=== PATIENT | male | born 1975 | race Caucasian/White ===

== ENCOUNTER 2021-01-10 02:13 | Inpatient (IN) | payer BC, SELFPAY ==
[2021-01-10] VITALS (7 sets, daily range): BP systolic 109–175; BP diastolic 74–115; PULSE 84–95; RESP 16–18; TEMP 36.4–37; O2SAT 96–98; BMI 23.7
[2021-01-10 03:05] LABS: MANUAL DIFF FLAG NO
[2021-01-10 03:07] LABS: Basophils Percent Auto 0.5 % (0-2); Eosinophils Absolute Auto 0.1 X10*3/uL (0.0-0.4); Eosinophils Percent Auto 1.9 % (0-4); Hematocrit 41.7 % (42-52); Hemoglobin 14.8 g/dl (14.0-18.0); Imm Gran Abs Auto 0.02 X10*3/uL (0.00-0.03); Imm Gran Pct Auto 0.3 % (0.0-0.4); Lymphocytes Absolute Auto 2.3 X10*3/uL (1.2-4.9); Lymphocytes Percent Auto 39.9 % (20-40); Mean Corpuscular HGB Conc 35.5 g/dl (31.0-36.0); Mean Corpuscular Hemoglobin 33.3 pg (27.0-33.0); Mean Corpuscular Volume 93.7 fL (80-98); Mean Platelet Volume 9.8 fL (9.4-12.4); Monocytes Absolute Auto 0.5 X10*3/uL (0.1-1.2); Monocytes Percent Auto 8.4 % (2-11); Neutrophils Absolute Auto 2.8 X10*3/uL (2.0-8.3); Platelet Count 150 X10*3/uL (160-400); Red Blood Count 4.45 X10*6/uL (4.60-5.80); Red Cell Distribution Width 12.5 % (11.0-16.0); White Blood Count 5.7 X10*3/uL (4.8-10.8)
[2021-01-10 03:08] LABS: Glucose Urine UA NEG (NEG); Leukocyte Esterase Urine NEG (NEG); Nitrite Urine NEG (NEG); Urine Blood NEG (NEG); Urine Ketones NEG (NEG); Urine Protein NEG (NEG-TRACE)
[2021-01-10 03:09] LABS: Appearance Urine CLEAR; Color Urine YELLOW
[2021-01-10 03:13] LABS: Bacteria Urine 1+ /LPF; Mucus Urine 1+ /LPF; Squamous Epithelial Cell Urine 1+ /LPF
[2021-01-10 03:19] LABS: COVID-19 Test Negative (Negative); IDNOW Serial# 9DD0AD1C
[2021-01-10] MEDS: LORazepam 1 MG TABLET PO (03:26)
--- NOTE | 2021-01-10 03:28 | PC.NURSE ---
Patient reported his anxiety bad and gave score 6/10 at this time, provider notified/ordered Ativan 1 mg/administered as ordered/pending effect. Patient reported he is taking Ativan for first time, medication education completed, no other distress reported at this time, will continue to monitor.
[2021-01-10 03:30] LABS: Anion Gap 16 (12-20); Blood Urea Nitrogen 18 mg/dL (9-16); Calcium 9.2 mg/dL (8.4-10.2); Carbon Dioxide 21 mmol/L (22-29); Chloride 108 mmol/L (96-108); Estimated Glomerular Filt Rate > 60; Ethanol 138 mg/dL; Glucose Random 113 mg/dL (60-115); Sodium 141 mmol/L (135-145)
[2021-01-10 03:41] LABS: Amphetamine Screen Urine Not Detected (Not Detect); Barbiturates, Urine Not Detected (Not Detect); Benzodiazepines Screen Urine Not Detected (Not Detect); Cannabinoid Screen Urine POSITIVE (Not Detect); Cocaine Screen Urine Not Detected (Not Detect); Fentanyl, urine Not Detected (Not Detect); Opiate Screen Urine Not Detected (Not Detect); Phencyclidine Screen Urine Not Detected (Not Detect)
--- NOTE | 2021-01-10 03:47 | ED.PSYCH ---
HPI - Psych General Chief Complaint: Psychiatric Symptoms Stated Complaint: SI Time Seen by Provider: 01/10/21 03:24 Source: patient, family () and EMS Mode of arrival: EMS History of Present Illness HPI Narrative: 45-year-old male who is brought in by EMS after called police department for help, reporting that patient was making suicidal statements and endorsed a plan. Patient's plan was to drive off the road at high speed and was apparently triggered by chronic depression and anxiety that patient has been dealing with for a long time which has been exacerbated by the pandemic. Patient was promptly Section and brought in by EMS. Patient noted to have psychiatry appointment on 01/20 and otherwise denies homicidal ideation or audiovisual hallucinations. Related Data Home Medications Medication Instructions Recorded Confirmed buspirone 15 mg tablet 2 tab PO BID PRN 01/10/21 01/10/21 mirtazapine 15 mg tablet 1 tab PO BEDTIME 01/10/21 01/10/21 Allergies Allergy/AdvReac Type Severity Reaction Status Date / Time No Known Allergies Allergy Verified 01/10/21 02:39 Review of Systems Review of Systems: Pertinent positives and negatives as stated in HPI 10 point review systems is otherwise negative. [facility] Past Medical History Source: nursing notes reviewed Social History Social History Advance Directives: No Advance Directives Information Provided: No Physical Exam Vital Signs: Vital Signs: Last Vital Signs Temp 98 F 01/10/21 06:46 Pulse 95 01/10/21 06:46 Resp 16 01/10/21 06:46 BP 109/74 01/10/21 06:46 Pulse Ox 98 01/10/21 06:46 Body Mass Index 23.7 VITAL SIGNS: Reviewed. GENERAL: Well developed, well nourished, in no acute distress. HEAD: Normocephalic/atraumatic EYES: PERRLA, EOMI LUNGS: Normal breath sounds. No adventitious sounds or accessory muscle use. SpO2<98> CARDIOVASCULAR: Regular rate and rhythm without noted murmurs ABDOMEN: Soft, non-tender, non-distended with bowel sounds. SKIN: Inspection of the skin reveals no rashes NEUROLOGIC: Alert and oriented x 4. Strength and sensation to light touch were grossly intact x4 PSYCH: Depressed affect Course Course Course Narrative: 45-year-old male with history and clinical presentation consistent with acute suicidal ideation with depression. Review of all investigations shows presence of alcohol and marijuana, but otherwise no acute findings and patient is otherwise medically cleared for further evaluation by the care team. Reevaluation(s) Reevaluation #1: Patient placed in physician observation because the patient needed more time for evaluation by care team in the morning. At the time observation was started the patient's vital signs were stable, patient is alert, neuro: Nonfocal, CV RRR, lungs clear Time: 05:26 MDM - Psych Lab Data Result diagrams: 01/10/21 03:01 01/10/21 03:01 Labs: Lab Results 01/10/21 01/10/21 01/10/21 Range/Units 02:51 02:51 02:51 WBC (4.8-10.8) X10*3/uL RBC (4.60-5.80) X10*6/uL Hgb (14.0-18.0) g/dl Hct (42-52) % MCV (80-98) fL MCH (27.0-33.0) pg MCHC (31.0-36.0) g/dl RDW (11.0-16.0) % Plt Count (160-400) X10*3/uL MPV (9.4-12.4) fL Immature Gran % (Auto) (0.0-0.4) % Neut % (Auto) (45-73) % Lymph % (Auto) (20-40) % Gulf % (Auto) (2-11) % Eos % (Auto) (0-4) % Baso % (Auto) (0-2) % Lymph # (Auto) (1.2-4.9) X10*3/uL [place] # (Auto) (0.1-1.2) X10*3/uL Eos # (Auto) (0.0-0.4) X10*3/uL Baso # (Auto) (0.0-0.2) X10*3/uL Abs Immat Gran (auto) (0.00-0.03) X10*3/uL Absolute Neuts (auto) (2.0-8.3) X10*3/uL Absolute Nucleated RBC (0.0-0.012) X10*3/uL Nucleated RBC % (auto) (0.0-0.2) /100WBC Sodium (135-145) mmol/L Potassium (3.3-5.1) mmol/L Chloride (96-108) mmol/L Carbon Dioxide (22-29) mmol/L Anion Gap (12-20) BUN (9-16) mg/dL Creatinine (0.5-1.4) mg/dL Estim Creat Clear Calc Estimated GFR Random Glucose (60-115) mg/dL Calcium (8.4-10.2) mg/dL Urine Color YELLOW Urine Appearance CLEAR Urine pH 6.0 (5.0-8.0) Ur Specific [place] 1.020 (1.005-1.025) Urine Protein NEG (NEG-TRACE) MG/DL Urine Glucose (UA) NEG (NEG) MG/DL Urine Ketones NEG (NEG) MG/DL Urine Blood NEG (NEG) Urine Nitrite NEG (NEG) Ur Leukocyte Esterase NEG (NEG) Urine RBC 1-4 (0) /HPF Urine WBC 1-4 (0-4) /HPF Ur Squamous Epith Cells 1+ /LPF Urine Bacteria 1+ /LPF Hyaline Casts 1-4 /LPF Urine Mucus 1+ /LPF Urine Opiates Screen Not Detected (Not Detect) Urine Fentanyl Screen Not Detected (Not Detect) Ur Barbiturates Screen Not Detected (Not Detect) Ur Phencyclidine Scrn Not Detected (Not Detect) Ur Amphetamines Screen Not Detected (Not Detect) U Benzodiazepines Scrn Not Detected (Not Detect) Urine Cocaine Screen Not Detected (Not Detect) U Marijuana (THC) Screen POSITIVE H (Not Detect) Ethyl Alcohol mg/dL COVID-19 (KUN) Negative (Negative) COVID-19 Clin Com See Note 01/10/21 01/10/21 01/10/21 Range/Units 03:01 03:01 03:01 WBC 5.7 (4.8-10.8) X10*3/uL RBC 4.45 L (4.60-5.80) X10*6/uL Hgb 14.8 (14.0-18.0) g/dl Hct 41.7 L (42-52) % MCV 93.7 (80-98) fL MCH 33.3 H (27.0-33.0) pg MCHC 35.5 (31.0-36.0) g/dl RDW 12.5 (11.0-16.0) % Plt Count 150 L (160-400) X10*3/uL MPV 9.8 (9.4-12.4) fL Immature Gran % (Auto) 0.3 (0.0-0.4) % Neut % (Auto) 49.0 (45-73) % Lymph % (Auto) 39.9 (20-40) % Gulf % (Auto) 8.4 (2-11) % Eos % (Auto) 1.9 (0-4) % Baso % (Auto) 0.5 (0-2) % Lymph # (Auto) 2.3 (1.2-4.9) X10*3/uL [place] # (Auto) 0.5 (0.1-1.2) X10*3/uL Eos # (Auto) 0.1 (0.0-0.4) X10*3/uL Baso # (Auto) 0.0 (0.0-0.2) X10*3/uL Abs Immat Gran (auto) 0.02 (0.00-0.03) X10*3/uL Absolute Neuts (auto) 2.8 (2.0-8.3) X10*3/uL Absolute Nucleated RBC 0.000 (0.0-0.012) X10*3/uL Nucleated RBC % (auto) 0.0 (0.0-0.2) /100WBC Sodium 141 (135-145) mmol/L Potassium 4.0 (3.3-5.1) mmol/L Chloride 108 (96-108) mmol/L Carbon Dioxide 21 L (22-29) mmol/L Anion Gap 16 (12-20) BUN 18 H (9-16) mg/dL Creatinine 1.17 (0.5-1.4) mg/dL Estim Creat Clear Calc 84.0 Estimated GFR > 60 Random Glucose 113 (60-115) mg/dL Calcium 9.2 (8.4-10.2) mg/dL Urine Color Urine Appearance Urine pH (5.0-8.0) Ur Specific [place] (1.005-1.025) Urine Protein (NEG-TRACE) MG/DL Urine Glucose (UA) (NEG) MG/DL Urine Ketones (NEG) MG/DL Urine Blood (NEG) Urine Nitrite (NEG) Ur Leukocyte Esterase (NEG) Urine RBC (0) /HPF Urine WBC (0-4) /HPF Ur Squamous Epith Cells /LPF Urine Bacteria /LPF Hyaline Casts /LPF Urine Mucus /LPF Urine Opiates Screen (Not Detect) Urine Fentanyl Screen (Not Detect) Ur Barbiturates Screen (Not Detect) Ur Phencyclidine Scrn (Not Detect) Ur Amphetamines Screen (Not Detect) U Benzodiazepines Scrn (Not Detect) Urine Cocaine Screen (Not Detect) U Marijuana (THC) Screen (Not Detect) Ethyl Alcohol 138 mg/dL COVID-19 (KUN) (Negative) COVID-19 Clin Com Discharge Plan Discharge Clinical Impression: Depression, Suicidal ideation Prescriptions: No Action mirtazapine 15 mg tablet 1 tab PO BEDTIME RF: 0 buspirone 15 mg tablet 2 tab PO BID PRN (Reason: Anxiety) RF: 0
--- NOTE | 2021-01-10 06:18 | PC.NURSE ---
Patient slept through since arrived, positive effect from Ativan 1 mg, no distress observed/reported at this time, care team consult ordered, patient will be seen in the morning, behavior appropriate, VSS, will continue to monitor.
--- NOTE | 2021-01-10 08:43 | PC.NURSE ---
pt a/o x 3 o sob/nii noted skin pink warm speaks in full sentences. pt denies any si/hi at this time. pt states, i feel ashamed about the trouble that i have put people through, life is hard .
--- NOTE | 2021-01-10 09:45 | PC.NURSE ---
pt's minda called [facility] [place] and spoke with this rn. pt's stated that pt is very unpredictable, drinks (etoh), get really angry which can be scary for her and the kids and if he is going to come home he needs to have a plan of care . md aware..
[2021-01-10] MEDS: lisinopriL 10 MG TABLET 30 MG PO (11:53)
--- NOTE | 2021-01-10 12:17 | PHA.MEDREC ---
Pharmacy Consult ? Medication Reconciliation Pharmacy has completed the medication reconciliation. Patient is inherent to medications Patient reports taking lisinopril 30mg daily however it has not been filled since 05/03/2020 for a 90 days supply. I contacted [facility] who was able to verify that he was suppose to be on it. They also verified that they sent a prescription for a 90 days supply with 2 refills. Daphne, patient's , is going to call to verify if patient is actually taking at home. Pao Zamora, ZaidaD
--- NOTE | 2021-01-10 19:56 | PCS.ADM ---
Pt C[place] [facility] after expressing to his that he wanted to drive his car into the [employer]. Pt has been depressed for 46 years. Pt has not been able to see a psychiatrist and thinks that this has compounded his depression. Pt signed a CV. Pt lives with his and her 15 year old daughter that does not want a relationship with him. Pt and have a 2 year old son together. Pt feels he needs different meds. Pt does admit that he drinks alcohol and smokes marijuana often. Pt denies withdrawal symptoms. Pt is tearful on and off. Pt does seem sad. Pt has a stressful job with the [employer]. Pt states he has never done anything to end his life and does not want to. He just wants help.
[2021-01-10] MEDS: Mirtazapine 15 MG TABLET PO (20:10)
[2021-01-10] MEDS: hydrOXYzine HCL 25 MG TABLET PO (20:10)
[2021-01-10] MEDS: traZODone HCL 50 MG TABLET PO (20:10)
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
[2021-01-11 06:00] VITALS: BP 148/82; PULSE 97; RESP 16; TEMP 36.3; O2SAT 98
[2021-01-11] MEDS: LORazepam 1 MG TABLET 0.5 MG PO ×3 (06:29→20:38)
[2021-01-11 07:37] LABS: Alanine Aminotransferase 30 U/L (0-40); Albumin Level 4.5 g/dL (3.5-5.0); Alkaline Phosphatase 60 U/L (39-117); Aspartate Amino Transferase 36 U/L (5-37); Bilirubin Direct 0.3 mg/dL (0.0-0.5); Bilirubin Total 1.1 mg/dL (0.0-1.0); Magnesium 2.2 mg/dL (1.6-2.6); Total Protein 7.4 g/dL (6.5-8.0)
[2021-01-11 08:26] LABS: Folate 15.9 ng/mL (> or = 4.0); Vitamin B12 333 pg/mL (200-900)
[2021-01-11 09:36] VITALS: BP 148/82; PULSE 97
[2021-01-11] MEDS: Pyridoxine HCl (Vitamin B6) 50 MG TABLET PO (09:36)
[2021-01-11] MEDS: OXcarbazepine 150 MG TABLET PO ×2 (09:36→20:38)
[2021-01-11] MEDS: Thiamine HCL 100 MG TABLET PO (09:36)
[2021-01-11] MEDS: busPIRone HCl 10 MG TABLET 30 MG PO ×2 (09:36→20:39)
[2021-01-11] MEDS: lisinopriL 10 MG TABLET 30 MG PO (09:36)
[2021-01-11] MEDS: Folic Acid 1 MG TABLET PO (09:36)
[2021-01-11 18:00] VITALS: BP 118/75; PULSE 92; TEMP 36.8
[2021-01-11] MEDS: Mirtazapine 15 MG TABLET PO (20:38)
[2021-01-11] MEDS: hydrOXYzine HCL 25 MG TABLET PO (20:38)
--- NOTE | 2021-01-11 23:54 | P.PNPSI_ITS ---
Subjective Subjective Date of Service: 01/11/21 Reason For Visit: SI Depression Interim History: pt seen on 01/11 Reports he is feeling better getting some time to reflect pt shared that he was never suicidal but just said his comment in an angry, frustrated moment during an argument with his ; patient denies any history of attempted suicide; continues to deny SI - he endorses PTSD from childhood trauma as well as other traumas; has subsequent high anxiety; reports both parents were emotionally absent, no displays of warmth or affection; father chronic alcoholic -Patient reports depression of the last couple of years, marked with low self- esteem and bouts of hopelessness - number of psychosocial stressors including considerable family strife as patient has a 15-year-old stepdaughter; the relationship is challenging which further has frustrated his relationship with his ; 3 years has a toddler; 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 Patient agrees to continue with current medications at this time Mental Status Exam Mental Status Exam Narrative: Patient Appearance:?Appropriate Patient Orientation:?Person, Place, Time and Situation Level of Consciousness:?Awake and Alert Patient Behavior:?Appropriate and Cooperative Mood Description:?depressed, anxious Affect Description:?a little blunted Patient Cognition Impaired:?No Ability to Follow Directions:?Good Speech Pattern:?Spontaneous Speech Hallucinations:?None Delusions:?Not Present Thought Process:?Goal Oriented Thought Content: On treatment; no SI and no HI Judgement:?Fair Diagnostics Vital Signs (24Hr): Vital Signs - 24 hr 01/11/21 06:00 01/11/21 09:36 01/11/21 18:00 Temperature 97.3 F 98.2 F Pulse Rate 97 97 92 Respiratory Rate 16 Blood Pressure 148/82 H 148/82 H 118/75 Pulse Oximetry 98 Body Mass Index 23.7 Labs Results: 01/10/21 03:01 01/10/21 03:01 Labs: Laboratory Results - last 48 hr 01/10/21 01/10/21 01/10/21 02:51 02:51 02:51 WBC RBC Hgb Hct MCV MCH MCHC RDW Plt Count MPV Immature Gran % (Auto) Neut % (Auto) Lymph % (Auto) [place] % (Auto) Eos % (Auto) Baso % (Auto) Lymph # (Auto) [place] # (Auto) Eos # (Auto) Baso # (Auto) Abs Immat Gran (auto) Absolute Neuts (auto) Absolute Nucleated RBC Nucleated RBC % (auto) Sodium Potassium Chloride Carbon Dioxide Anion Gap BUN Creatinine Estim Creat Clear Calc Estimated GFR Random Glucose Calcium Magnesium Total Bilirubin Direct Bilirubin AST ALT Alkaline Phosphatase Total Protein Albumin Vitamin B12 Folate Urine Color YELLOW Urine Appearance CLEAR Urine pH 6.0 Ur Specific [place] 1.020 Urine Protein NEG Urine Glucose (UA) NEG Urine Ketones NEG Urine Blood NEG Urine Nitrite NEG Ur Leukocyte Esterase NEG Urine RBC 1-4 Urine WBC 1-4 Ur Squamous Epith Cells 1+ Urine Bacteria 1+ Hyaline Casts 1-4 Urine Mucus 1+ Urine Opiates Screen Not Detected Urine Fentanyl Screen Not Detected Ur Barbiturates Screen Not Detected Ur Phencyclidine Scrn Not Detected Ur Amphetamines Screen Not Detected U Benzodiazepines Scrn Not Detected Urine Cocaine Screen Not Detected U Marijuana (THC) Screen POSITIVE H Ethyl Alcohol COVID-19 (KUN) Negative COVID-19 Clin Com See Note 01/10/21 01/10/21 01/10/21 03:01 03:01 03:01 WBC 5.7 RBC 4.45 L Hgb 14.8 Hct 41.7 L MCV 93.7 MCH 33.3 H MCHC 35.5 RDW 12.5 Plt Count 150 L MPV 9.8 Immature Gran % (Auto) 0.3 Neut % (Auto) 49.0 Lymph % (Auto) 39.9 Norton % (Auto) 8.4 Eos % (Auto) 1.9 Baso % (Auto) 0.5 Lymph # (Auto) 2.3 Norton # (Auto) 0.5 Eos # (Auto) 0.1 Baso # (Auto) 0.0 Abs Immat Gran (auto) 0.02 Absolute Neuts (auto) 2.8 Absolute Nucleated RBC 0.000 Nucleated RBC % (auto) 0.0 Sodium 141 Potassium 4.0 Chloride 108 Carbon Dioxide 21 L Anion Gap 16 BUN 18 H Creatinine 1.17 Estim Creat Clear Calc 84.0 Estimated GFR > 60 Random Glucose 113 Calcium 9.2 Magnesium Total Bilirubin Direct Bilirubin AST ALT Alkaline Phosphatase Total Protein Albumin Vitamin B12 Folate Urine Color Urine Appearance Urine pH Ur Specific [place] Urine Protein Urine Glucose (UA) Urine Ketones Urine Blood Urine Nitrite Ur Leukocyte Esterase Urine RBC Urine WBC Ur Squamous Epith Cells Urine Bacteria Hyaline Casts Urine Mucus Urine Opiates Screen Urine Fentanyl Screen Ur Barbiturates Screen Ur Phencyclidine Scrn Ur Amphetamines Screen U Benzodiazepines Scrn Urine Cocaine Screen U Marijuana (THC) Screen Ethyl Alcohol 138 COVID-19 (KUN) COVID-19 Clin Com 01/11/21 01/11/21 06:56 06:56 WBC RBC Hgb Hct MCV MCH MCHC RDW Plt Count MPV Immature Gran % (Auto) Neut % (Auto) Lymph % (Auto) [place] % (Auto) Eos % (Auto) Baso % (Auto) Lymph # (Auto) [place] # (Auto) Eos # (Auto) Baso # (Auto) Abs Immat Gran (auto) Absolute Neuts (auto) Absolute Nucleated RBC Nucleated RBC % (auto) Sodium Potassium Chloride Carbon Dioxide Anion Gap BUN Creatinine Estim Creat Clear Calc Estimated GFR Random Glucose Calcium Magnesium 2.2 Total Bilirubin 1.1 H Direct Bilirubin 0.3 AST 36 ALT 30 Alkaline Phosphatase 60 Total Protein 7.4 Albumin 4.5 Vitamin B12 333 Folate 15.9 Urine Color Urine Appearance Urine pH Ur Specific [place] Urine Protein Urine Glucose (UA) Urine Ketones Urine Blood Urine Nitrite Ur Leukocyte Esterase Urine RBC Urine WBC Ur Squamous Epith Cells Urine Bacteria Hyaline Casts Urine Mucus Urine Opiates Screen Urine Fentanyl Screen Ur Barbiturates Screen Ur Phencyclidine Scrn Ur Amphetamines Screen U Benzodiazepines Scrn Urine Cocaine Screen U Marijuana (THC) Screen Ethyl Alcohol COVID-19 (KUN) COVID-19 Clin Com Medications Medications Current Medications Generic Name Dose Route Start Last Admin Trade Name Freq PRN Reason Stop Dose Admin Acetaminophen 650 mg 01/10/21 17:26 Acetaminophen 325 Mg Tablet PO Q6H PRN Headache/Pain Mild Scale (1-3) Al Hydroxide/Mg Hydroxide 30 ml 01/10/21 17:26 Magnesium Hydrox/Alum Hydrox 30 Ml Oral.Susp PO Q6H PRN Heartburn/Nausea Buspirone HCl 30 mg 01/11/21 09:00 01/11/21 20:39 Buspirone Hcl 10 Mg Tablet PO 30 mg BID MICHEAL Administration Folic Acid 1 mg 01/11/21 09:00 01/11/21 09:36 Folic Acid 1 Mg Tablet PO 1 mg DAILY MICHEAL Administration Hydroxyzine HCl 25 mg 01/10/21 17:26 01/11/21 20:38 Hydroxyzine Hcl 25 Mg Tablet PO 25 mg Q6H PRN Administration Anxiety Lisinopril 30 mg 01/11/21 09:00 01/11/21 09:36 Lisinopril 10 Mg Tablet PO 30 mg DAILY MICHEAL Administration Protocol Lorazepam 1 mg 01/10/21 21:01 01/11/21 20:38 Lorazepam 1 Mg Tablet PO 01/14/21 21:00 1 mg Q6H PRN Administration Alcohol Withdrawal Taper Magnesium Hydroxide 30 ml 01/10/21 17:26 Milk Of Magnesia 30 Ml Oral.Susp PO DAILY PRN Constipation Mirtazapine 15 mg 01/10/21 21:00 01/11/21 20:38 Mirtazapine 15 Mg Tablet PO 15 mg BEDTIME MICHEAL Administration Oxcarbazepine 150 mg 01/11/21 09:00 01/11/21 20:38 Oxcarbazepine 150 Mg Tablet PO 150 mg BID MICHEAL Administration Pyridoxine HCl 50 mg 01/11/21 09:00 01/11/21 09:36 Pyridoxine Hcl (Vitamin B6) 50 Mg Tablet PO 50 mg DAILY MICHEAL Administration Thiamine HCl 100 mg 01/11/21 09:00 01/11/21 09:36 Thiamine Hcl 100 Mg Tablet PO 100 mg DAILY MICHEAL Administration Trazodone HCl 50 mg 01/10/21 17:26 01/10/21 20:10 Trazodone Hcl 50 Mg Tablet PO 50 mg BEDTIME PRN Administration Insomnia Allergies Allergies Allergy/AdvReac Type Severity Reaction Status Date / Time No Known Allergies Allergy Verified 01/10/21 02:39 Assessment & Plan Assessment & Plan (1) Suicidal ideation: Status: Acute Code(s): R45.851 - Suicidal ideations (2) Generalized anxiety disorder: Status: Acute Code(s): F41.1 - Generalized anxiety disorder (3) Alcohol use disorder: Status: Acute (4) MDD (major depressive disorder), recurrent episode, severe: Status: Acute Code(s): F33.2 - Major depressive disorder, recurrent severe without psychotic features Assessment and Plan: 45 y.o. Male who carries a dx of mild alcohol use disorder, SONNY, and MDD, recurrent. Arrived to [facility] ED via EMS, section 12a, after called due to pt making suicidal statement to drive off the road at a high speed to complete suicide. BAL was 138 on 03:01, pt reported drinking half a pint of vodka. He presents with sx of depression, irritability, and anxiety. Has hx of HTN. Has multiple psychosocial stressors at home. No hx of IPLOC, denies psychosis, no hx of manic episodes endorsed. Signed a CV. -On admission patient denied actually being suicidal and said he made a comment just out of anger and frustration in a moment of high emotion; patient denies any history of attempted suicide - he endorses PTSD from childhood trauma as well as other traumas; has subsequent high anxiety; reports both parents were emotionally absent, no displays of warmth or affection; father chronic alcoholic -Patient reports depression of the last couple of years, marked with low self- esteem and bouts of hopelessness - number of psychosocial stressors including considerable family strife as patient has a 15-year-old stepdaughter; the relationship is challenging which further has frustrated his relationship with his ; 3 years has a toddler; 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 Plan: - on admission patient's home medications continued and Trileptal started 1. Continue buspar 30 mg BID, willing to trial taking this as a scheduled dose as he reports it has been helpful (started one month ago). 2. Continue remeron 15 mg QHS for insomnia, anxiety, depression as he reports positive benefit for sleep. 3. Start trileptal 150 mg BID, may increase as tolerated (will start low dose as he has hx of med side effects) 4. Consider trial of acamprosate to target urges for alcohol. Start thiamine, folate, and pyridoxine therapy. 5. Monitor response to medications. Monitor for safety in the milieu. Discharge on stabilization. Patient seen. Chart reviewed. Discussed with team. Obtain collateral contact info?as needed Greater than 50% of the session was spent on counseling and/or coordination of care Reason for contiued inpatient stay Substantial Risk for: med/psych decompensation
[2021-01-12] MEDS: lisinopriL 10 MG TABLET 30 MG PO (08:37)
[2021-01-12] MEDS: Folic Acid 1 MG TABLET PO (08:37)
[2021-01-12] MEDS: Thiamine HCL 100 MG TABLET PO (08:37)
[2021-01-12] MEDS: OXcarbazepine 150 MG TABLET PO ×2 (08:37→20:44)
[2021-01-12] MEDS: busPIRone HCl 10 MG TABLET 30 MG PO ×2 (08:37→20:43)
[2021-01-12] MEDS: Pyridoxine HCl (Vitamin B6) 50 MG TABLET PO (08:37)
[2021-01-12] MEDS: hydrOXYzine HCL 25 MG TABLET PO ×2 (08:38→20:43)
[2021-01-12] MEDS: LORazepam 1 MG TABLET 0.5 MG PO (13:51)
[2021-01-12 18:00] VITALS: BP 148/96; PULSE 101; TEMP 36.9
--- NOTE | 2021-01-12 19:55 | HO.PSYCHPN ---
Subjective Subjective Date of Service: 01/12/21 Reason For Visit: SI Depression Subjective Notes: Conditional Voluntary and 3 Day (01/16) Healthcare Proxy: No Guardianship: No Medical Problems Affecting Mental Status: No Interim History: Pt reports he is feeling improved, CIWA 0, some mild anxiety at times assisted in mgt with hydroxyzine. Denies SI, HI. TDN 01/16/21. Medication Compliance: Yes Side effects from medications: No Attending Groups: Intermittent Review of Systems Acute medical concerns: No Medical Review of Systems: unchanged Review of Systems Psychiatric: Reports no additional psychiatric complaints and Reports suicidal ideation (denies) Mental Status Exam Mental Status Exam Patient Appearance: Appropriate Patient Orientation: Person, Place, Time and Situation Level of Consciousness: Awake and Alert Patient Behavior: Appropriate and Cooperative Mood Description: Flat Affect Description: Flat Patient Cognition Impaired: No Ability to Follow Directions: Good Speech Pattern: Spontaneous Speech Hallucinations: None Delusions: Not Present Thought Process: Goal Oriented Thought Content: positive for Goal Oriented and positive for Suicidal Ideation (denies) Judgement: Fair Diagnostics Vital Signs (24Hr): Body Mass Index 23.7 Labs Results: 01/10/21 03:01 01/10/21 03:01 Labs: Laboratory Results - last 48 hr 01/11/21 01/11/21 06:56 06:56 Magnesium 2.2 Total Bilirubin 1.1 H Direct Bilirubin 0.3 AST 36 ALT 30 Alkaline Phosphatase 60 Total Protein 7.4 Albumin 4.5 Vitamin B12 333 Folate 15.9 Medications Medications Current Medications Generic Name Dose Route Start Last Admin Trade Name Freq PRN Reason Stop Dose Admin Acetaminophen 650 mg 01/10/21 17:26 Acetaminophen 325 Mg Tablet PO Q6H PRN Headache/Pain Mild Scale (1-3) Al Hydroxide/Mg Hydroxide 30 ml 01/10/21 17:26 Magnesium Hydrox/Alum Hydrox 30 Ml Oral.Susp PO Q6H PRN Heartburn/Nausea Buspirone HCl 30 mg 01/11/21 09:00 01/12/21 08:37 Buspirone Hcl 10 Mg Tablet PO 30 mg BID MICHEAL Administration Folic Acid 1 mg 01/11/21 09:00 01/12/21 08:37 Folic Acid 1 Mg Tablet PO 1 mg DAILY MICHEAL Administration Hydroxyzine HCl 25 mg 01/10/21 17:26 01/12/21 08:38 Hydroxyzine Hcl 25 Mg Tablet PO 25 mg Q6H PRN Administration Anxiety Lisinopril 30 mg 01/11/21 09:00 01/12/21 08:37 Lisinopril 10 Mg Tablet PO 30 mg DAILY MICHEAL Administration Protocol Lorazepam 1 mg 01/10/21 21:01 01/12/21 13:51 Lorazepam 1 Mg Tablet PO 01/14/21 21:00 1 mg Q6H PRN Administration Alcohol Withdrawal Taper Magnesium Hydroxide 30 ml 01/10/21 17:26 Milk Of Magnesia 30 Ml Oral.Susp PO DAILY PRN Constipation Mirtazapine 15 mg 01/10/21 21:00 01/11/21 20:38 Mirtazapine 15 Mg Tablet PO 15 mg BEDTIME MICHEAL Administration Oxcarbazepine 150 mg 01/11/21 09:00 01/12/21 08:37 Oxcarbazepine 150 Mg Tablet PO 150 mg BID MICHEAL Administration Pyridoxine HCl 50 mg 01/11/21 09:00 01/12/21 08:37 Pyridoxine Hcl (Vitamin B6) 50 Mg Tablet PO 50 mg DAILY MICHEAL Administration Thiamine HCl 100 mg 01/11/21 09:00 01/12/21 08:37 Thiamine Hcl 100 Mg Tablet PO 100 mg DAILY MICHEAL Administration Trazodone HCl 50 mg 01/10/21 17:26 01/10/21 20:10 Trazodone Hcl 50 Mg Tablet PO 50 mg BEDTIME PRN Administration Insomnia Allergies Allergies Allergy/AdvReac Type Severity Reaction Status Date / Time No Known Allergies Allergy Verified 01/10/21 02:39 Assessment & Plan Assessment & Plan (1) Suicidal ideation: Status: Acute Code(s): R45.851 - Suicidal ideations (2) Generalized anxiety disorder: Status: Acute Code(s): F41.1 - Generalized anxiety disorder (3) Alcohol use disorder: Status: Acute (4) MDD (major depressive disorder), recurrent episode, severe: Status: Acute Code(s): F33.2 - Major depressive disorder, recurrent severe without psychotic features Assessment and Plan: 45 y.o. Male who carries a dx of mild alcohol use disorder, SONNY, and MDD, recurrent. Arrived to [facility] ED via EMS, section 12a, after called due to pt making suicidal statement to drive off the road at a high speed to complete suicide. BAL was 138 on 03:01, pt reported drinking half a pint of vodka. He presents with sx of depression, irritability, and anxiety. Has hx of HTN. Has multiple psychosocial stressors at home. No hx of IPLOC, denies psychosis, no hx of manic episodes endorsed. Signed a CV. Plan: 1. Continue buspar 30 mg BID, willing to trial taking this as a scheduled dose as he reports it has been helpful (started one month ago). 2. Continue remeron 15 mg QHS for insomnia, anxiety, depression as he reports positive benefit for sleep. 3. Continue trileptal 150 mg BID, denies SE. 4. Consider trial of acamprosate to target urges for alcohol. Start thiamine, folate, and pyridoxine therapy. 5. Monitor response to medications. Monitor for safety in the milieu. Discharge on stabilization. Patient seen. Chart reviewed. Discussed with team. Obtain collateral contact info?as needed 01/12/21: Continue the above noted plan. Pt has signed a TDN effective 01/16. Will discuss Campral again on 01/13 as he has tolerated Trileptal thus far and does not appear to have significant withdrawal symptoms. Greater than 50% of the session was spent on counseling and/or coordination of care Reason for contiued inpatient stay Substantial Risk for: harm to self, inability to function, rapid decompensation and med/psych decompensation
[2021-01-12] MEDS: traZODone HCL 50 MG TABLET PO (20:44)
[2021-01-12] MEDS: Mirtazapine 15 MG TABLET PO (20:44)
--- NOTE | 2021-01-12 23:55 | PC.NURSE ---
Bharath is currently asleep. Respiration rate is 16. No signs of agitation or sweating. Nurse did not wake patient for full CIWA assessment. Nurse will continue to monitor.
--- NOTE | 2021-01-13 04:08 | PC.NURSE ---
Bharath asleep at 0400. No signs of distress or restlessness. No signs of sweating and breathing is free and easy. Respiration was 16 .Nurse did not wake patient for full CIWA assessment. Nurse will continue to monitor patient.
[2021-01-13 09:04] VITALS: BP 137/88; PULSE 94
[2021-01-13] MEDS: Thiamine HCL 100 MG TABLET PO (09:04)
[2021-01-13] MEDS: Folic Acid 1 MG TABLET PO (09:04)
[2021-01-13] MEDS: busPIRone HCl 10 MG TABLET 30 MG PO ×2 (09:04→20:21)
[2021-01-13] MEDS: OXcarbazepine 150 MG TABLET PO ×2 (09:04→20:21)
[2021-01-13] MEDS: Pyridoxine HCl (Vitamin B6) 50 MG TABLET PO (09:04)
[2021-01-13] MEDS: lisinopriL 10 MG TABLET 30 MG PO (09:04)
[2021-01-13 18:00] VITALS: BP 148/103; PULSE 99; TEMP 36.6
--- NOTE | 2021-01-13 18:01 | P.PNPSI_ITS ---
Subjective Subjective Date of Service: 01/13/21 Reason For Visit: SI Depression Interim History: Reading in his room. No symptoms, issues of concern. Team reports he may be looking for medication titration due to an increase of symptoms in the afternoon. Medication Compliance: Yes Side effects from medications: No Review of Systems Acute medical concerns: No Medical Review of Systems: unchanged Review of Systems Psychiatric: Reports no additional psychiatric complaints and Reports suicidal ideation (denies) Mental Status Exam Mental Status Exam Patient Appearance: Appropriate Patient Orientation: Person, Place, Time and Situation Level of Consciousness: Awake and Alert Patient Behavior: Appropriate and Cooperative Mood Description: Flat Affect Description: Flat Patient Cognition Impaired: No Ability to Follow Directions: Good Speech Pattern: Spontaneous Speech Hallucinations: None Delusions: Not Present Thought Process: Goal Oriented Thought Content: positive for Goal Oriented and positive for Suicidal Ideation (denies) Judgement: Fair Diagnostics Vital Signs (24Hr): Vital Signs - 24 hr 01/13/21 09:04 Pulse Rate 94 Blood Pressure 137/88 Body Mass Index 23.7 Labs Results: 01/10/21 03:01 01/10/21 03:01 Medications Medications Current Medications Generic Name Dose Route Start Last Admin Trade Name Freq PRN Reason Stop Dose Admin Acetaminophen 650 mg 01/10/21 17:26 Acetaminophen 325 Mg Tablet PO Q6H PRN Headache/Pain Mild Scale (1-3) Al Hydroxide/Mg Hydroxide 30 ml 01/10/21 17:26 Magnesium Hydrox/Alum Hydrox 30 Ml Oral.Susp PO Q6H PRN Heartburn/Nausea Buspirone HCl 30 mg 01/11/21 09:00 01/13/21 09:04 Buspirone Hcl 10 Mg Tablet PO 30 mg BID MICHEAL Administration Folic Acid 1 mg 01/11/21 09:00 01/13/21 09:04 Folic Acid 1 Mg Tablet PO 1 mg DAILY MCIHEAL Administration Hydroxyzine HCl 25 mg 01/10/21 17:26 01/12/21 20:43 Hydroxyzine Hcl 25 Mg Tablet PO 25 mg Q6H PRN Administration Anxiety Lisinopril 30 mg 01/11/21 09:00 01/13/21 09:04 Lisinopril 10 Mg Tablet PO 30 mg DAILY MICHEAL Administration Protocol Lorazepam 0.5 mg 01/10/21 21:01 01/12/21 13:51 Lorazepam 1 Mg Tablet PO 01/14/21 21:00 1 mg Q6H PRN Administration Alcohol Withdrawal Taper Magnesium Hydroxide 30 ml 01/10/21 17:26 Milk Of Magnesia 30 Ml Oral.Susp PO DAILY PRN Constipation Mirtazapine 15 mg 01/10/21 21:00 01/12/21 20:44 Mirtazapine 15 Mg Tablet PO 15 mg BEDTIME MICHEAL Administration Oxcarbazepine 150 mg 01/11/21 09:00 01/13/21 09:04 Oxcarbazepine 150 Mg Tablet PO 150 mg BID MICHEAL Administration Pyridoxine HCl 50 mg 01/11/21 09:00 01/13/21 09:04 Pyridoxine Hcl (Vitamin B6) 50 Mg Tablet PO 50 mg DAILY MICHEAL Administration Thiamine HCl 100 mg 01/11/21 09:00 01/13/21 09:04 Thiamine Hcl 100 Mg Tablet PO 100 mg DAILY MICHEAL Administration Trazodone HCl 50 mg 01/10/21 17:26 01/12/21 20:44 Trazodone Hcl 50 Mg Tablet PO 50 mg BEDTIME PRN Administration Insomnia Allergies Allergies Allergy/AdvReac Type Severity Reaction Status Date / Time No Known Allergies Allergy Verified 01/10/21 02:39 Assessment & Plan Assessment & Plan (1) Suicidal ideation: Status: Acute Code(s): R45.851 - Suicidal ideations (2) Generalized anxiety disorder: Status: Acute Code(s): F41.1 - Generalized anxiety disorder (3) Alcohol use disorder: Status: Acute (4) MDD (major depressive disorder), recurrent episode, severe: Status: Acute Code(s): F33.2 - Major depressive disorder, recurrent severe without psychotic features Assessment and Plan: 45 y.o. Male who carries a dx of mild alcohol use disorder, SONNY, and MDD, recurrent. Arrived to [facility] ED via EMS, section 12a, after called due to pt making suicidal statement to drive off the road at a high speed to complete suicide. BAL was 138 on 03:01, pt reported drinking half a pint of vodka. He presents with sx of depression, irritability, and anxiety. Has hx of HTN. Has multiple psychosocial stressors at home. No hx of IPLOC, denies psychosis, no hx of manic episodes endorsed. Signed a CV. Plan: 1. Continue buspar 30 mg BID, willing to trial taking this as a scheduled dose as he reports it has been helpful (started one month ago). 2. Continue remeron 15 mg QHS for insomnia, anxiety, depression as he reports positive benefit for sleep. 3. Continue trileptal 150 mg BID, denies SE. 4. Consider trial of acamprosate to target urges for alcohol. Start thiamine, folate, and pyridoxine therapy. 5. Monitor response to medications. Monitor for safety in the milieu. Discharge on stabilization. Patient seen. Chart reviewed. Discussed with team. Obtain collateral contact info?as needed 01/12/21: Continue the above noted plan. Pt has signed a TDN effective 01/16. Will discuss Campral again on 01/13 as he has tolerated Trileptal thus far and does not appear to have significant withdrawal symptoms. 01/13/21: Continue current plan. Greater than 50% of the session was spent on counseling and/or coordination of care Informed Consent: further education needed Reason for contiued inpatient stay Substantial Risk for: rapid decompensation
[2021-01-13] MEDS: Mirtazapine 15 MG TABLET PO (20:21)
[2021-01-14 06:00] VITALS: BP 153/91; PULSE 66; RESP 20; TEMP 36.1; O2SAT 99
[2021-01-14 09:12] VITALS: BP 150/96; PULSE 106
[2021-01-14] MEDS: lisinopriL 10 MG TABLET 30 MG PO (09:12)
[2021-01-14] MEDS: busPIRone HCl 10 MG TABLET 30 MG PO (09:13)
[2021-01-14] MEDS: Folic Acid 1 MG TABLET PO (09:13)
[2021-01-14] MEDS: OXcarbazepine 150 MG TABLET PO (09:13)
[2021-01-14] MEDS: Pyridoxine HCl (Vitamin B6) 50 MG TABLET PO (09:13)
[2021-01-14] MEDS: Thiamine HCL 100 MG TABLET PO (09:13)
--- NOTE | 2021-01-14 10:21 | P.PNPSI_ITS ---
Subjective Subjective Date of Service: 01/14/21 Reason For Visit: SI Depression Diagnostics Vital Signs (24Hr): Vital Signs - 24 hr 01/13/21 18:00 01/14/21 06:00 01/14/21 09:12 Temperature 98 F 97 F Pulse Rate 99 66 106 H Respiratory Rate 20 Blood Pressure 148/103 H 153/91 H 150/96 H Pulse Oximetry 99 Body Mass Index 23.7 Labs Results: 01/10/21 03:01 01/10/21 03:01 Medications Medications Current Medications Generic Name Dose Route Start Last Admin Trade Name Freq PRN Reason Stop Dose Admin Acetaminophen 650 mg 01/10/21 17:26 Acetaminophen 325 Mg Tablet PO Q6H PRN Headache/Pain Mild Scale (1-3) Al Hydroxide/Mg Hydroxide 30 ml 01/10/21 17:26 Magnesium Hydrox/Alum Hydrox 30 Ml Oral.Susp PO Q6H PRN Heartburn/Nausea Buspirone HCl 30 mg 01/14/21 15:00 Buspirone Hcl 10 Mg Tablet PO TID MICHEAL Folic Acid 1 mg 01/11/21 09:00 01/14/21 09:13 Folic Acid 1 Mg Tablet PO 1 mg DAILY MICHEAL Administration Hydroxyzine HCl 25 mg 01/10/21 17:26 01/12/21 20:43 Hydroxyzine Hcl 25 Mg Tablet PO 25 mg Q6H PRN Administration Anxiety Lisinopril 30 mg 01/11/21 09:00 01/14/21 09:12 Lisinopril 10 Mg Tablet PO 30 mg DAILY MICHEAL Administration Protocol Lorazepam 0.5 mg 01/10/21 21:01 01/12/21 13:51 Lorazepam 1 Mg Tablet PO 01/14/21 21:00 1 mg Q6H PRN Administration Alcohol Withdrawal Taper Magnesium Hydroxide 30 ml 01/10/21 17:26 Milk Of Magnesia 30 Ml Oral.Susp PO DAILY PRN Constipation Mirtazapine 30 mg 01/14/21 21:00 Mirtazapine 15 Mg Tablet PO BEDTIME MICHEAL Oxcarbazepine 150 mg 01/11/21 09:00 01/14/21 09:13 Oxcarbazepine 150 Mg Tablet PO 150 mg BID MICHEAL Administration Pyridoxine HCl 50 mg 01/11/21 09:00 01/14/21 09:13 Pyridoxine Hcl (Vitamin B6) 50 Mg Tablet PO 50 mg DAILY MICHEAL Administration Thiamine HCl 100 mg 01/11/21 09:00 01/14/21 09:13 Thiamine Hcl 100 Mg Tablet PO 100 mg DAILY MICHEAL Administration Trazodone HCl 50 mg 01/10/21 17:26 01/12/21 20:44 Trazodone Hcl 50 Mg Tablet PO 50 mg BEDTIME PRN Administration Insomnia Allergies Allergies Allergy/AdvReac Type Severity Reaction Status Date / Time No Known Allergies Allergy Verified 01/10/21 02:39 Assessment & Plan Assessment & Plan (1) Suicidal ideation: Status: Acute Code(s): R45.851 - Suicidal ideations (2) Generalized anxiety disorder: Status: Acute Code(s): F41.1 - Generalized anxiety disorder (3) Alcohol use disorder: Status: Acute (4) MDD (major depressive disorder), recurrent episode, severe: Status: Acute Code(s): F33.2 - Major depressive disorder, recurrent severe without psychotic features Assessment and Plan: 45 y.o. Male who carries a dx of mild alcohol use disorder, SONNY, and MDD, recurrent. Arrived to [facility] [place] [facility] via EMS, section 12a, after called due to pt making suicidal statement to drive off the road at a high speed to complete suicide. BAL was 138 on 03:01, pt reported drinking half a pint of vodka. He presents with sx of depression, irritability, and anxiety. Has hx of HTN. Has multiple psychosocial stressors at home. No hx of IPLOC, denies psychosis, no hx of manic episodes endorsed. Signed a CV. -On admission patient denied actually being suicidal and said he made a comment just out of anger and frustration in a moment of high emotion; patient denies any history of attempted suicide - he endorses PTSD from childhood trauma as well as other traumas; has subsequent high anxiety; reports both parents were emotionally absent, no displ ays of warmth or affection; father chronic alcoholic -Patient reports depression of the last couple of years, marked with low self- esteem and bouts of hopelessness - number of psychosocial stressors including considerable family strife as patient has a 15-year-old stepdaughter; the relationship is challenging which further has frustrated his relationship with his ; 3 years has a toddler; work has been increasingly stressful - sports writer and patient discussed his history and ongoing issues and concluded that primary treatment will be i ndividual therapy (which he is currently involved in), family therapy and/or marriage counseling. Plan: - on admission patient's home medications continued and Trileptal started 1. Continue buspar 30 mg BID, willing to trial taking this as a scheduled dose as he reports it has been helpful (started one month ago). 2. Continue remeron 15 mg QHS for insomnia, anxiety, depression as he reports positive benefit for sleep. 3. Start trileptal 150 mg BID, may increase as tolerated (will start low dose as he has hx of med side effects) 4. Consider trial of acamprosate to target urges for alcohol. Start thiamine, folate, and pyridoxine therapy. 5. Monitor response to medications. Monitor for safety in the milieu. Discharge on stabilization. Patient seen. Chart reviewed. Discussed with team. Obtain collateral contact info?as needed Greater than 50% of the session was spent on counseling and/or coordination of care
--- NOTE | 2021-01-14 12:09 | P.DS_ITS ---
DS: Providers Provider Date of Service: 01/14/21 Date of admission: 01/10/21 17:05 Date of discharge: 01/14/21 Primary care physician: Unknown Physician Attending physician on admission: Gold De La Cruz Attending physician on discharge: Gold De La Cruz DS: Diagnosis Discharge Diagnosis (1) MDD (major depressive disorder), recurrent episode, severe: Status: Chronic (2) PTSD (post-traumatic stress disorder): Status: Chronic (3) Generalized anxiety disorder: Status: Chronic (4) Alcohol use disorder: Status: Chronic DS: Medications Discharge Medications Home Medications: Home Medications Medication Instructions Recorded Confirmed buspirone 15 mg tablet 2 tab PO BID PRN 01/10/21 01/10/21 lisinopril 30 mg tablet 1 tab PO DAILY 01/10/21 01/10/21 mirtazapine 15 mg tablet 1 tab PO BEDTIME 01/10/21 01/10/21 Previous Rx's Medication Instructions Recorded buspirone 10 mg tablet 30 mg PO TID 30 Days #270 tab 01/14/21 mirtazapine 15 mg tablet 30 mg PO BEDTIME 30 Days #60 tab 01/14/21 oxcarbazepine 150 mg tablet 150 mg PO BID 30 Days #60 tab 01/14/21 trazodone 50 mg tablet 50 mg PO BEDTIME PRN 30 Days #30 01/14/21 tab Mental Status Exam Mental Status Exam Narrative: Patient Appearance:?Appropriate Patient Orientation:?Person, Place, Time and Situation Level of Consciousness:?Awake and Alert Patient Behavior:?Appropriate and Cooperative Mood Description:? good Affect Description:?bright, congruent Patient Cognition Impaired:?No Ability to Follow Directions:?Good Speech Pattern:?Spontaneous Speech Hallucinations:?None Delusions:?Not Present Thought Process:?Goal Oriented Thought Content:? On treatment; no SI and no HI Judgement:?intact Data Data Completed and Pending Completed studies during hospitalization [Text1]: 01/10/21 01/10/21 01/10/21 02:51 02:51 02:51 WBC RBC Hgb Hct MCV MCH MCHC RDW Plt Count MPV Immature Gran % (Auto) Neut % (Auto) Lymph % (Auto) Harris % (Auto) Eos % (Auto) Baso % (Auto) Lymph # (Auto) Harris # (Auto) Eos # (Auto) Baso # (Auto) Abs Immat Gran (auto) Absolute Neuts (auto) Absolute Nucleated RBC Nucleated RBC % (auto) Sodium Potassium Chloride Carbon Dioxide Anion Gap BUN Creatinine Estim Creat Clear Calc Estimated GFR Random Glucose Calcium Magnesium Total Bilirubin Direct Bilirubin AST ALT Alkaline Phosphatase Total Protein Albumin Vitamin B12 Folate Urine Color YELLOW Urine Appearance CLEAR Urine pH 6.0 Ur Specific [place] 1.020 Urine Protein NEG Urine Glucose (UA) NEG Urine Ketones NEG Urine Blood NEG Urine Nitrite NEG Ur Leukocyte Esterase NEG Urine RBC 1-4 Urine WBC 1-4 Ur Squamous Epith Cells 1+ Urine Bacteria 1+ Hyaline Casts 1-4 Urine Mucus 1+ Urine Opiates Screen Not Detected Urine Fentanyl Screen Not Detected Ur Barbiturates Screen Not Detected Ur Phencyclidine Scrn Not Detected Ur Amphetamines Screen Not Detected U Benzodiazepines Scrn Not Detected Urine Cocaine Screen Not Detected U Marijuana (THC) Screen POSITIVE H Ethyl Alcohol COVID-19 (KUN) Negative COVID-19 Clin Com See Note 01/10/21 01/10/21 01/10/21 03:01 03:01 03:01 WBC 5.7 RBC 4.45 L Hgb 14.8 Hct 41.7 L MCV 93.7 MCH 33.3 H MCHC 35.5 RDW 12.5 Plt Count 150 L MPV 9.8 Immature Gran % (Auto) 0.3 Neut % (Auto) 49.0 Lymph % (Auto) 39.9 Harris % (Auto) 8.4 Eos % (Auto) 1.9 Baso % (Auto) 0.5 Lymph # (Auto) 2.3 Harris # (Auto) 0.5 Eos # (Auto) 0.1 Baso # (Auto) 0.0 Abs Immat Gran (auto) 0.02 Absolute Neuts (auto) 2.8 Absolute Nucleated RBC 0.000 Nucleated RBC % (auto) 0.0 Sodium 141 Potassium 4.0 Chloride 108 Carbon Dioxide 21 L Anion Gap 16 BUN 18 H Creatinine 1.17 Estim Creat Clear Calc 84.0 Estimated GFR > 60 Random Glucose 113 Calcium 9.2 Magnesium Total Bilirubin Direct Bilirubin AST ALT Alkaline Phosphatase Total Protein Albumin Vitamin B12 Folate Urine Color Urine Appearance Urine pH Ur Specific [place] Urine Protein Urine Glucose (UA) Urine Ketones Urine Blood Urine Nitrite Ur Leukocyte Esterase Urine RBC Urine WBC Ur Squamous Epith Cells Urine Bacteria Hyaline Casts Urine Mucus Urine Opiates Screen Urine Fentanyl Screen Ur Barbiturates Screen Ur Phencyclidine Scrn Ur Amphetamines Screen U Benzodiazepines Scrn Urine Cocaine Screen U Marijuana (THC) Screen Ethyl Alcohol 138 COVID-19 (KUN) COVID-19 Clin Com 01/11/21 01/11/21 06:56 06:56 WBC RBC Hgb Hct MCV MCH MCHC RDW Plt Count MPV Immature Gran % (Auto) Neut % (Auto) Lymph % (Auto) Harris % (Auto) Eos % (Auto) Baso % (Auto) Lymph # (Auto) Harris # (Auto) Eos # (Auto) Baso # (Auto) Abs Immat Gran (auto) Absolute Neuts (auto) Absolute Nucleated RBC Nucleated RBC % (auto) Sodium Potassium Chloride Carbon Dioxide Anion Gap BUN Creatinine Estim Creat Clear Calc Estimated GFR Random Glucose Calcium Magnesium 2.2 Total Bilirubin 1.1 H Direct Bilirubin 0.3 AST 36 ALT 30 Alkaline Phosphatase 60 Total Protein 7.4 Albumin 4.5 Vitamin B12 333 Folate 15.9 Urine Color Urine Appearance Urine pH Ur Specific [place] Urine Protein Urine Glucose (UA) Urine Ketones Urine Blood Urine Nitrite Ur Leukocyte Esterase Urine RBC Urine WBC Ur Squamous Epith Cells Urine Bacteria Hyaline Casts Urine Mucus Urine Opiates Screen Urine Fentanyl Screen Ur Barbiturates Screen Ur Phencyclidine Scrn Ur Amphetamines Screen U Benzodiazepines Scrn Urine Cocaine Screen U Marijuana (THC) Screen Ethyl Alcohol COVID-19 (KUN) COVID-19 Clin Com DS: Summary Hospital Course Hospital Course: 45 y.o. Male who carries a dx of mild alcohol use disorder, SONNY, and MDD, recurrent. Arrived to [facility] [place] [place], section 12a, after called due to pt making suicidal statement to drive off the road at a high speed to complete suicide. BAL was 138 on 03:01, pt reported drinking half a pint of vodka. He presents with sx of depression, irritability, and anxiety. Has hx of HTN. Has multiple psychosocial stressors at home. No hx of IPLOC, denies psychosis, no hx of manic episodes endorsed. Signed a CV. -On admission patient denied actually being suicidal and said he made a comment just out of anger and frustration in a moment of high emotion; he reports it was said, at some level, to let his family know how upset he was but reiterates he had no thoughts of hurting himself and denies any history of attempted suicide. The patient reported chronic depression that has increased over the past weeks and month due to psycho social stressors including considerable family strife as patient has a challenging relationship with his 15-year-old stepdaughter which further has frustrates his relationship with his ;? 3 years has a toddler and work has been increasingly stressful. Patient reports that he drinks about 2 to 3 drinks about 3 days a week but no more than that; patient not in any withdrawal and did not require detox. Patient's mood began to improve as he processed his issues; his depression abated and he remained without any SI at all. Patient was forthcoming in interviews and discussed some of his past trauma including childhood trauma and having parents who were emotionally absent, never really displaying affection or warmth and dealing with his father who was a chronic alcoholic. Patient explained how his PTSD and childhood experiences have left him with chronic struggles with self-esteem and bouts of hopelessness. Patient has started with a therapist and feels that is a good connection and is hopeful that continued therapy will prove effective. His , who is supportive, has also agreed to get into her her own therapy and the both are going to explore family therapy. Patient and his had good discussions while on the unit and he is returning home to live with her. Patient's mirtazapine was raised and his BuSpar dose was increased in frequency; he was started on Trileptal as an augmentation and will discuss this with his outpatient provider about whether or not to titrate this med further. Patient was also started on trazodone for insomnia (commercial real estate underwriter reviewed risks/side effects which patient understood). Outreach Counselor discussed maintenance medications for alcohol cravings however patient does not think he actually has cravings and usually only takes a drink when feeling anxious in the moment; he would like to hold off from maintenance medications at this time. Patient signed a 3 day and felt ready to go home. Patient had good behavior and impulse control throughout his admission and was appropriate with both staff and peers. He was in a good mood, with bright affect and reported feeling stable and safe; he continued to deny any SI and was with increased hope that treatment plan will be helpful. Patient is not in imminent risk for harm to self or others and his request for discharge honored. Status at Discharge Functional status at discharge: independent ambulation Overall status at discharge: patient is back to baseline Time Spent with Patient Time attestation: Total time spent providing and/or coordinating discharge services: Discharge Plan Discharge Patient Disposition: Home, Self-Care Discharge Diagnosis: mdd, recurrent, severe w/out psychosis in partial remission Referrals: Dr. Jurgen Thibodeaux (psychiatry) [Other] - 01/25/21 8:45 am (This is a virtual telehealth appointment) Renetta Borges NP [Nurse Practitioner] - 01/17/21 1:30 pm (IN OFFICE) Discharge Medications: New buspirone 10 mg Tablet 30 mg PO TID 30 Days Qty: 270 RF: 0 mirtazapine 15 mg Tablet 30 mg PO BEDTIME 30 Days Qty: 60 RF: 0 oxcarbazepine 150 mg Tablet 150 mg PO BID 30 Days Qty: 60 RF: 0 trazodone 50 mg Tablet 50 mg PO BEDTIME PRN (Reason: Insomnia) 30 Days Qty: 30 RF: 0 Continued lisinopril 30 mg tablet 1 tab PO DAILY RF: 0 Discontinued mirtazapine 15 mg tablet 1 tab PO BEDTIME RF: 0 buspirone 15 mg tablet 2 tab PO BID PRN (Reason: Anxiety) RF: 0 Discharge Orders: Discharge Order (Routine); Ordered 01/14/21 Ordered By: Gold De La Cruz Diet: regular diet Activity on Discharge: As tolerated Stand Alone Forms: Patient Portal Discharge page, Community Support Care Plan Goals: Maintain mood and safe behaviors Take medications as prescribed Continue to pursue sobriety Practice coping skills Continue with outpatient providers and reach out to them as needed Health Concerns: Mood stability and behaviors Plan of Treatment: Follow up with your psychiatric provider regarding above concerns Take medications as prescribed Assessment: Risk assessment at time of discharge: Patient was interviewed prior to discharge and found to be fully oriented and without any SI or HI. Patient has insight and demonstrates good judgment in terms of wanting to pursue treatment. Patient is not in imminent risk of harm to self or others and has a safety plan that includes presenting to the closest ER or calling 911 if feeling unsafe. Patient has been observed closely by nursing and unit staff throughout admission; patient has not engaged in any behaviors that suggest dangerousness to self or others and has demonstrated appropriate behaviors and impulse control. Discharge Date/Time: 01/14/21 13:50
== END 2021-01-14 13:50 | disposition home or self-care (01) | DRG 751 ==
LOC: HO.ED 06:44 → HO.PM5 17:11
PROVIDERS: Registered Nurse; Admitting Provider Psychiatry & Neurology Psychiatry; Emergency Provider Student in an Organized Health Care Education/Training Program; Visit Provider Psychiatry & Neurology Psychiatry
DX: F33.2 Major depressive disorder, recurrent severe without psychotic features (principal); R45.851 Suicidal ideations; I10 Essential (primary) hypertension; F43.10 Post-traumatic stress disorder, unspecified; F41.1 Generalized anxiety disorder; F10.10 Alcohol abuse, uncomplicated; Z20.822 Contact with and (suspected) exposure to COVID-19; Z79.899 Other long term (current) drug therapy
CPT/HCPCS: 36415; 80048; 80076; 80307; 81001; 82077; 82607; 82746; 83735; 85025; 87635; 99285